=== PATIENT | female | born 1980 | race Two or more races ===

== ENCOUNTER 2021-01-31 05:38 | Inpatient (IN) | payer SELFPAY ==
[~2021-01-31] VITALS: Ht 152.4 cm; Wt 50.0 kg
[2021-01-31] VITALS (13 sets, daily range): BP systolic 32–63; BP diastolic 26–44
[2021-01-31] MEDS ORDERED: DEXTROSE 50% 25 GM / 50ML DISP.SYRIN. IV ONE (05:56)
--- NOTE | 2021-01-31 06:23 | RAD ---
XR CHEST 1V History: Reason: s/p ETT / Spl. Instructions: / History: Comparison: None. Findings: Endotracheal tube with tip 2.9 cm above the maria g. Enteric tube with tip below the diaphragm beyond the image. Left upper and midlung consolidations. No pleural effusion. No pneumothorax. Nipple shadow s projecting over the mid lungs. Impression: 1. Left mid and upper lung consolidations, may represent pneumonia or contusions depending on histor y. Electronically signed by: Adama Jauregui DO (01/31/2021 6:20 AM) [facility]
[2021-01-31] MEDS ORDERED: 0.9 % SOD CHL for STERILE FIELD 10 ML DISP.SYRIN. ONE (06:28)
[2021-01-31] MEDS ORDERED: EPINEPHrine VIAL 5 MG in IV NORMAL SALINE 250ML 250 ML IV ONE (06:30)
[2021-01-31 06:54] LABS: BASO % 0 % (0-3); EOS % 0 % (0-3); HEMATOCRIT 43.1 % (36.0-47.0); HEMOGLOBIN 12.5 g/dL (12.0-15.5); LYMPH # 1.5 x10^3/uL (1.0-4.8); LYMPH % 13 % (24-48); MEAN CORPUSCULAR HEMOGLOBIN 30 pg (25-35); MEAN CORPUSCULAR HGB CONC 29 g/dL (31-37); MEAN CORPUSCULAR VOLUME 103 fL (79-100); MONO % 9 % (0-9); NEUT # 8.5 x10^3/uL (1.8-7.7); NEUT % 78 % (31-73); PLATELET COUNT 254 x10^3/uL (140-400); RED BLOOD COUNT 4.19 x10^6/uL (3.50-5.40); RED CELL DISTRIBUTION WIDTH 15.4 % (11.5-14.5)
[2021-01-31 07:00] LABS: BILIRUBIN,URINE NEGATIVE (NEG); CLARITY,URINE CLEAR; COLOR,URINE YELLOW; NITRITE,URINE NEGATIVE (NEG); PH,URINE 5.5 (<5.0-8.0); PROTEIN,URINE 100 mg/dL (NEG-TRACE); UROBILINOGEN,URINE 0.2 mg/dL (0.2 mg/dL)
[2021-01-31] MEDS ORDERED: IV NORMAL SALINE 1000ML BAG 1,000 ML IV ONE (07:00)
[2021-01-31 07:05] LABS: BARBITURATES NEG (NEG); BENZODIAZEPINES NEG (NEG); CANNABINOIDS POS (NEG); COCAINE NEG (NEG); METHADONE NEG (NEG); OPIATES POS (NEG); PHENCYCLIDINE NEG (NEG)
[2021-01-31 07:08] LABS: AMPHETAMINE/METHAMPHETAMINE POS (NEG)
[2021-01-31 07:16] LABS: ALBUMIN 3.5 g/dL (3.4-5.0); ALBUMIN/GLOBULIN RATIO 0.9 (1.0-1.7); CALCIUM 8.7 mg/dL (8.5-10.1); CREATININE 2.8 mg/dL (0.6-1.0); GFR 18.9; TOTAL BILIRUBIN 0.3 mg/dL (0.2-1.0); TOTAL PROTEIN 7.3 g/dL (6.4-8.2)
[2021-01-31 07:20] LABS: POTASSIUM 6.7 mmol/L (3.5-5.1)
[2021-01-31 07:28] LABS: BACTERIA,URINE FEW /HPF (0-FEW); WBC,URINE OCC /HPF (0-4)
--- NOTE | 2021-01-31 07:53 | PHYS DOC ---
General Adult EDM: Chief Complaint: CPR/FULL ARREST HPI: HPI: Patient is a 40 year old female who was brought in by reportedly 4 different people, by private vehicle. The patient was noted to be completely unresponsive, and apneic and without a pulse when security and nursing staff helped to pull her out of a vehicle in the parking lot. She was immediately taken to resuscitation room, where ACLS protocol was initiated and followed. CPR was begun. The patient had IO and IV access established. Airway was secured. Please see nursing notes for details regarding medications, and please see my associated note for intubation details as well as central line placement details. The patient is completely unresponsive, and I am unable to obtain any information from her directly due to her current clinical condition. I am told by the nursing staff and security that one of the males who brought her in reported that they were at a [place] last night. I am in form that it did not seem as if this male knew much about this patient. I am told that he was not a family member or significant other. I am also informed that this male seemed intoxicated and was unable to give any other meaningful information. Police were notified and told to come to the emergency department for investigation. We initially did not have the patient's name. 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 Review of Systems: Review of Systems: Constitutional: Unobtainable Eyes: Unobtainable HENT: Unobtainable Respiratory: Respiratory rate Cardiovascular: Cardiac arrest, pulseless GI: Unobtainable : Unobtainable Musculoskeletal: Unobtainable Integument: Unobtainable Neurologic: She is unresponsive. Endocrine: Unobtainable Lymphatic: Unobtainable Psychiatric: Unobtainable Heart Score: C/O Chest Pain: N/A Risk Factors: Risk Factors: DM, Current or recent (<one month) smoker, HTN, HLP, family history of CAD, obesity. Risk Scores: Score 0 - 3: 2.5% MACE over next 6 weeks - Discharge Home Score 4 - 6: 20.3% MACE over next 6 weeks - Admit for Clinical Observation Score 7 - 10: 72.7% MACE over next 6 weeks - Early Invasive Strategies Current Medications: Current Medications Medications (Trade) Dose Ordered Sig/Logan Start Time Stop Time Status Last Admin Dose Admin Dextrose (Dextrose 50%-Water Syringe) 25 gm STK-MED ONCE 01/31/21 05:56 01/31/21 05:57 DC Dopamine HCl/ Dextrose 250 ml @ 15 mls/hr 1X ONCE 01/31/21 07:15 01/31/21 07:16 DC Epinephrine HCl 5 mg/Sodium Chloride 255 ml @ 24.48 mls/ hr 1X ONCE 01/31/21 06:30 01/31/21 16:54 Sodium Chloride 1,000 ml @ 1,000 mls/hr 1X ONCE 01/31/21 07:00 01/31/21 07:59 Sodium Chloride (NORMAL SALINE FLUSH for STERILE FIELD) 10 ml STK-MED ONCE 01/31/21 06:28 01/31/21 06:28 DC Allergies: Allergies: Allergies Coded Allergies Type Severity Reaction Last Updated Verified Unable to Assess 01/31/21 No Physical Exam: PE: Constitutional: Unresponsive, moribund HENT: No obvious significant scalp trauma noted. No obvious facial deformity noted. She has an abrasion of her left cheek area. Dried vomitus on the left side of her face. Eyes: Pupils are fixed and dilated. Cornea are very dry appearing. Neck: Trachea is midline Cardiovascular: On arrival, she is pulseless, no cardiac tones noted on auscultation. She is pale and cyanotic appearing. Lungs & Thorax: She is apneic, no spontaneous respirations. Abdomen: Abdomen is not obviously distended and appearing. Abdomen is soft. No obvious acute abdominal wall trauma. There is healed lower pelvic scar which appears consistent with a scar. Skin: Skin is unkempt. She has multiple superficial abrasions scattered on upper and lower extremities. She has a relatively large area of what appears to be ecchymotic erythema of her left hip and left lateral proximal thigh area. There appears to be a square type cony around this area of her left hip as well. She has some linear red mckeon noted on her left wrist and forearm, though they do not appear to be fully circumferential. She appears to have a superficial abrasion type lesion of her left shoulder area. No large open gaping wounds. No bleeding. Back: No obvious deformity. Extremities: She is poorly perfused, cyanotic. No obvious limb deformity is noted. Neurologic: She is unresponsive. No spontaneous movement. No localization to pain. No verbal response. No motor response. Pupils are fixed and dilated. Psychologic: Unresponsive Current Patient Data: Labs: Laboratory Tests Test 01/31/21 06:00 01/31/21 06:12 01/31/21 06:45 Sodium Level 146 mmol/L (136-145) H Potassium Level 6.7 mmol/L (3.5-5.1) *H Chloride Level 106 mmol/L (98-107) Carbon Dioxide Level 13 mmol/L (21-32) L Anion Gap 27 (6-14) H Blood Urea Nitrogen 18 mg/dL (7-20) Creatinine 2.8 mg/dL (0.6-1.0) H Estimated GFR (Cockcroft-Gault) 18.9 BUN/Creatinine Ratio 6 (6-20) Glucose Level 7 mg/dL (70-99) *L Calcium Level 8.7 mg/dL (8.5-10.1) Total Bilirubin 0.3 mg/dL (0.2-1.0) Aspartate Amino Transferase (AST) 708 U/L (15-37) H Alanine Aminotransferase (ALT) 609 U/L (14-59) H Alkaline Phosphatase 55 U/L (46-116) Troponin I Quantitative 1.483 ng/mL (0.000-0.055) Total Protein 7.3 g/dL (6.4-8.2) Albumin 3.5 g/dL (3.4-5.0) Albumin/Globulin Ratio 0.9 (1.0-1.7) L Ethyl Alcohol Level < 10 mg/dL (0-10) Glucose (Fingerstick) 430 mg/dL (50-99) *H Urine Collection Type U cath Urine Color Yellow Urine Clarity Clear Urine pH 5.5 (<5.0-8.0) Urine Specific [place] 1.025 (1.000-1.030) Urine Protein 100 mg/dL (NEG-TRACE) Urine Glucose (UA) Negative mg/dL (NEG) Urine Ketones (Stick) Negative mg/dL (NEG) Urine Blood Small (NEG) Urine Nitrite Negative (NEG) Urine Bilirubin Negative (NEG) Urine Urobilinogen Dipstick 0.2 mg/dL (0.2 mg/dL) Urine Leukocyte Esterase Negative (NEG) Urine RBC 1-2 /HPF (0-2) Urine WBC Occ /HPF (0-4) Urine Squamous Epithelial Cells Many /LPF Urine Bacteria Few /HPF (0-FEW) Urine Mucus Marked /LPF Urine Opiates Screen Pos (NEG) Urine Methadone Screen Neg (NEG) Urine Barbiturates Neg (NEG) Urine Phencyclidine Screen Neg (NEG) Urine Amphetamine/Methamphetamine Pos (NEG) Urine Benzodiazepines Screen Neg (NEG) Urine Cocaine Screen Neg (NEG) Urine Cannabinoids Screen Pos (NEG) Urine Ethyl Alcohol Neg (NEG) Laboratory Tests 01/31/21 06:00 Vital Signs: Vital Signs Date Time Temp Pulse Resp B/P (MAP) Pulse Ox O2 Delivery O2 Flow Rate FiO2 01/31/21 06:00 Ventilator EKG: EKG: EKG is interpreted at time of completion during resuscitation. Rhythm is irregular, does not appear to be sinus rhythm, does not appear to be organized rhythm [place] right Frequent ectopy which appears to be PVCs Radiology/Procedures: Radiology/Procedures: IMAGING REPORT Signed PATIENT: DAVID BERMUDEZ ACCOUNT: [id number] : 01/31/2021 LOCATION: ER AGE: 00M 00D SEX: F EXAM STATUS: PRE ER ORD. PHYSICIAN: DRAKE ERICKSON MD REASON: s/p ETT PROCEDURE: CHEST AP ONLY XR CHEST 1V History: Reason: s/p ETT / Spl. Instructions: / History: Comparison: None. Findings: Endotracheal tube with tip 2.9 cm above the maria g. Enteric tube with tip below the diaphragm beyond the image. Left upper and midlung consolidations. No pleural effusion. No pneumothorax. Nipple shadows projecting over the mid lungs. Impression: 1. Left mid and upper lung consolidations, may represent pneumonia or con tusions depending on history. Electronically signed by: Adama Jauregui DO (01/31/2021 6:20 AM) [facility] DICTATED and SIGNED BY: ADAMA JAUREGUI DO DATE: 01/31/21 [id number] Indication: Respiratory failure Consent: Unable to give consent due to emergent nature. Medications Used: see nursing note Procedure: The patient was placed in the appropriate position. Intubation was performed using direct manual laryngoscopy, 4 Bladimir blade. A 7.0 endotracheal tube was passed through the cords. I did use a bougie to assist in tube placement. Initial confirmation of placement included bilateral breath sounds, tube fogging, adequate chest rise, adequate pulse oximetry reading. A chest x-ray to verify correct placement of the tube showed appropriate tube position. There were no complications. Complications: none. Indication: Vascular access after status post cardiac arrest and hypotension Consent: Unobtainable secondary to patient's critical condition Procedure: The patient was positioned appropriately and the skin over the right femoral vein was prepped and draped in a sterile fashion. A large bore needle was used to identify the vein. A guide wire was then inserted into the vein through the needle. A triple lumen catheter was then inserted into the vessel over the guide wire using the Seldinger technique. All ports showed good, free flowing blood return and were flushed with saline solution. The catheter was then securely fastened to the skin with sutures and covered with a sterile dressing. Complications: none. [] Course & Med Decision Making: Course & Med Decision Making Pertinent Labs and Imaging studies reviewed. (See chart for details) ACLS protocol continued after the patient's arrival. She received multiple doses of IV epinephrine. PEA was noted on the monitor. She was intubated without incident. Please see associated intubation note for further details. The patient received IV calcium, sodium bicarbonate, as well as IV fluids. She was noted to be profoundly hypoglycemic, she was given boluses of IV dextrose. Her glucose did improve after this. The patient remains unresponsive, no meaningful movement, pupils continue to be fixed and dilated, no spontaneous respirations. After multiple doses of medications and CPR, ROSC was obtained. IV epinephrine drip was ordered. I placed a triple-lumen central line catheter to her right femoral vein. Please see associated note for details of this. This was uncomplicated and occurred without incident. IV epinephrine drip was continued and titrated. IV dopamine ordered for continued hypotension. IV fluid boluses are given. The please have been in contact with the people who brought her into the emergency department, ongoing investigation in that regard we will continue, per their protocol. Ultimately, I was able to speak with the patient's ex- and older sister. I was able to explain to them the grim situation and her critical condition. I fear that her condition is not survivable. She remains quite hypotensive despite fluids and pressor support. She continues to be completely unresponsive. I explained to her ex- and her sister the plan for admission to the ICU. They report that they will be in route to see her. Jessica Disclaimer: Jessica Disclaimer: This electronic medical record was generated, in whole or in part, using a voice recognition dictation system. Departure Departure Impression: Primary Impression: Cardiorespiratory arrest Additional Impressions: Acute renal failure Hyperkalemia Transaminitis Positive urine drug screen Elevated troponin level Multisystem organ failure Disposition: ADMITTED INPATIENT Admitting Physician: ANA Condition: CRITICAL Referrals: UNKNOWN PCP NAME (PCP) MAGDI RAMESH DO Jan 31, 2021 07:53
[2021-01-31] MEDS ORDERED: EPINEPHrine VIAL 10 MG in IV NORMAL SALINE 250ML IV PRN (08:15)
[2021-01-31 08:38] LABS: BASE EXCESS ABG -22 mmol/L (-3-3); HCO3 ABG 8 mmol/L (21-28); PCO2 ABG 31 mmHg (35-46); PO2 ABG 178 mmHg (85-108)
[2021-01-31 08:39] LABS: FIO2 ABG 100%; SAT O2 ABG 99 % (92-99)
[2021-01-31] MEDS ORDERED: SODIUM BICARBONATE VIAL 150 MEQ in IV DEXTROSE 5% 1,000 ML IV SCH (09:00)
[2021-01-31] MEDS ORDERED: SODIUM BICARB ADULT 8.4% 50 MEQ/50 ML DISP.SYRIN. IV ONE (09:00)
--- NOTE | 2021-01-31 09:02 | PDOC1 ---
History and Physical Date of Service: DOS: DATE: 01/31/21 TIME: 09:02 Chief Complaint: Problems: (1) Cardiorespiratory arrest (2) Acute renal failure (3) Multisystem organ failure (4) Elevated troponin level History of Present Illness: Reason for Visit: Found unresponsive HPI: Patient is intubated and sedated by the time I am able to evaluate her thus history from emergency room below. Patient is a 40 year old female who was brought in by reportedly 4 different people, by private vehicle. The patient was noted to be completely unresponsive, and apneic and without a pulse when security and nursing staff helped to pull her out of a vehicle in the parking lot. She was immediately taken to resuscitation room, where ACLS protocol was initiated and followed. CPR was begun. The patient had IO and IV access established. Airway was secured. Please see nursing notes for details regarding medications, and please see my associated note for intubation details as well as central line placement details. The patient is completely unresponsive, and I am unable to obtain any information from her directly due to her current clinical condition. I am told by the nursing staff and security that one of the males who brought her in reported that they were at a [place] last night. I am in form that it did not seem as if this male knew much about this patient. I am told that he was not a family member or significant other. I am also informed that this male seemed intoxicated and was unable to give any other meaningful information. Police were notified and told to come to the emergency department for investigation. We initially did not have the patient's name. 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 When I evaluated the patient in ICU she was completely unresponsive. Intubated without any sedation and no meaningful neurologic function. Pupils blown. Suspect notable anoxic injury Past Medical/Surgical History: PMH/PSH: Unknown and unable to review with patient Allergies: Allergies: Coded Allergies: Unable to Assess (Unverified , 01/31/21) Family History: Family History: Unknown and unable to review the patient Social History: Social History: Unknown and unable to review with patient Current Medications: Current Medications Current Medications Epinephrine HCl 5 mg/Sodium Chloride 255 ml @ 24.48 mls/ hr 1X ONCE IV Last administered on 01/31/21at 07:03; Start 01/31/21 at 06:30; Stop 01/31/21 at 16:54 Dextrose (Dextrose 50%-Water Syringe) 25 gm STK-MED ONCE IV ; Start 01/31/21 at 05:56; Stop 01/31/21 at 05:57; Status DC Sodium Chloride (NORMAL SALINE FLUSH for STERILE FIELD) 10 ml STK-MED ONCE .R OUTE ; Start 01/31/21 at 06:28; Stop 01/31/21 at 06:28; Status DC Sodium Chloride 1,000 ml @ 1,000 mls/hr 1X ONCE IV Last administered on 01/31/21at 07:03; Start 01/31/21 at 07:00; Stop 01/31/21 at 07:59; Status DC Dopamine HCl/ Dextrose 250 ml @ 15 mls/hr 1X ONCE IV Last administered on 01/31/21at 07:13; Start 01/31/21 at 07:15; Stop 01/31/21 at 07:16; Status DC Norepinephrine Bitartrate 8 mg/ Dextrose 258 ml @ 9.675 mls/ hr CONT PRN IV PER PROTOCOL; Start 01/31/21 at 08:00 Epinephrine HCl 10 mg/Sodium Chloride 250 ml @ 7.5 mls/hr CONT PRN IV SEE I/O RECORD; Start 01/31/21 at 08:15 Sodium Bicarbonate 150 meq/Dextrose 1,150 ml @ 75 mls/hr [id number] IV ; Start 01/31/21 at 09:00 Sodium Bicarbonate (Sodium Bicarb Adult 8.4% Syr) 100 meq 1X ONCE IV ; Start 01/31/21 at 09:00; Stop 01/31/21 at 09:01; Status DC ROS: Review of Systems Review of System Cannot review with patient as she is intubated and nonresponsive Physical Exam: Vital Signs: Vital Signs Date Time Temp Pulse Resp B/P (MAP) Pulse Ox O2 Delivery O2 Flow Rate FiO2 01/31/21 08:19 100 Ventilator 01/31/21 06:17 25 34/7 (16) 99.0 01/31/21 06:14 64 01/31/21 05:50 100.0 100.0 Physcial Exam: GEN: Patient unresponsive no meaningful neurologic function HEENT: Normal cephalic, atraumatic, external auditory canals are patent EYES: Nonreactive pupils MUSCULOSKELETAL: Well developed , well nourished LUNGS: Clear to auscultation in all lung lemos without rhonchi or wheezing HEART: RRR, S1, S2 present. Peripheral pulses intact, no obvious murmurs noted ABDOMEN: Soft, nontender. Positive bowel sounds, no organomegaly, normal bowel sounds EXTREMITIES: Without clubbing, cyanosis, or edema. Pedal pulses intact. NEUROLOGIC: No meaningful neurologic function PSYCHIATRIC: Cannot assess SKIN: No ulcerations or rashes, good skin turgor, no jaundice VASCULAR: Good capillary refill, neurovascular bundle appears to be intact Labs: Labs: Laboratory Tests Test 01/31/21 06:00 01/31/21 06:12 01/31/21 06:40 01/31/21 06:45 White Blood Count 11.0 x10^3/uL (4.0-11.0) Red Blood Count 4.19 x10^6/uL (3.50-5.40) Hemoglobin 12.5 g/dL (12.0-15.5) Hematocrit 43.1 % (36.0-47.0) Mean Corpuscular Volume 103 fL (79-100) Mean Corpuscular Hemoglobin 30 pg (25-35) Mean Corpuscular Hemoglobin Concent 29 g/dL (31-37) Red Cell Distribution Width 15.4 % (11.5-14.5) Platelet Count 254 x10^3/uL (140-400) Neutrophils (%) (Auto) 78 % (31-73) Lymphocytes (%) (Auto) 13 % (24-48) Monocytes (%) (Auto) 9 % (0-9) Eosinophils (%) (Auto) 0 % (0-3) Basophils (%) (Auto) 0 % (0-3) Neutrophils # (Auto) 8.5 x10^3/uL (1.8-7.7) Lymphocytes # (Auto) 1.5 x10^3/uL (1.0-4.8) Monocytes # (Auto) 1.0 x10^3/uL (0.0-1.1) Eosinophils # (Auto) 0.0 x10^3/uL (0.0-0.7) Basophils # (Auto) 0.0 x10^3/uL (0.0-0.2) Sodium Level 146 mmol/L (136-145) Potassium Level 6.7 mmol/L (3.5-5.1) Chloride Level 106 mmol/L (98-107) Carbon Dioxide Level 13 mmol/L (21-32) Anion Gap 27 (6-14) Blood Urea Nitrogen 18 mg/dL (7-20) Creatinine 2.8 mg/dL (0.6-1.0) Estimated GFR (Cockcroft-Gault) 18.9 BUN/Creatinine Ratio 6 (6-20) Glucose Level 7 mg/dL (70-99) Lactic Acid Level 16.2 mmol/L (0.4-2.0) Calcium Level 8.7 mg/dL (8.5-10.1) Total Bilirubin 0.3 mg/dL (0.2-1.0) Aspartate Amino Transf (AST/SGOT) 708 U/L (15-37) Alanine Aminotransferase (ALT/SGPT) 609 U/L (14-59) Alkaline Phosphatase 55 U/L (46-116) Troponin I Quantitative 1.483 ng/mL (0.000-0.055) Total Protein 7.3 g/dL (6.4-8.2) Albumin 3.5 g/dL (3.4-5.0) Albumin/Globulin Ratio 0.9 (1.0-1.7) Ethyl Alcohol Level < 10 mg/dL (0-10) Glucose (Fingerstick) 430 mg/dL (50-99) SARS-CoV-2 Antigen (Rapid) Negative (NEGATIVE) Urine Collection Type U cath Urine Color Yellow Urine Clarity Clear Urine pH 5.5 (<5.0-8.0) Urine Specific [place] 1.025 (1.000-1.030) Urine Protein 100 mg/dL (NEG-TRACE) Urine Glucose (UA) Negative mg/dL (NEG) Urine Ketones (Stick) Negative mg/dL (NEG) Urine Blood Small (NEG) Urine Nitrite Negative (NEG) Urine Bilirubin Negative (NEG) Urine Urobilinogen Dipstick 0.2 mg/dL (0.2 mg/dL) Urine Leukocyte Esterase Negative (NEG) Urine RBC 1-2 /HPF (0-2) Urine WBC Occ /HPF (0-4) Urine Squamous Epithelial Cells Many /LPF Urine Bacteria Few /HPF (0-FEW) Urine Mucus Marked /LPF Urine Opiates Screen Pos (NEG) Urine Methadone Screen Neg (NEG) Urine Barbiturates Neg (NEG) Urine Phencyclidine Screen Neg (NEG) Urine Amphetamine/Methamphetamine Pos (NEG) Urine Benzodiazepines Screen Neg (NEG) Urine Cocaine Screen Neg (NEG) Urine Cannabinoids Screen Pos (NEG) Urine Ethyl Alcohol Neg (NEG) Test 01/31/21 08:32 01/31/21 08:59 O2 Saturation 99 % (92-99) Arterial Blood pH 7.03 (7.35-7.45) Arterial Blood pCO2 at Patient Temp 31 mmHg (35-46) Arterial Blood pO2 at Patient Temp 178 mmHg (85-108) Arterial Blood HCO3 8 mmol/L (21-28) Arterial Blood Base Excess -22 mmol/L (-3-3) FiO2 100% Glucose (Fingerstick) 151 mg/dL (70-99) Laboratory Tests Test 01/31/21 06:00 01/31/21 06:12 01/31/21 06:40 01/31/21 06:45 White Blood Count 11.0 x10^3/uL (4.0-11.0) Red Blood Count 4.19 x10^6/uL (3.50-5.40) Hemoglobin 12.5 g/dL (12.0-15.5) Hematocrit 43.1 % (36.0-47.0) Mean Corpuscular Volume 103 fL (79-100) Mean Corpuscular Hemoglobin 30 pg (25-35) Mean Corpuscular Hemoglobin Concent 29 g/dL (31-37) Red Cell Distribution Width 15.4 % (11.5-14.5) Platelet Count 254 x10^3/uL (140-400) Neutrophils (%) (Auto) 78 % (31-73) Lymphocytes (%) (Auto) 13 % (24-48) Monocytes (%) (Auto) 9 % (0-9) Eosinophils (%) (Auto) 0 % (0-3) Basophils (%) (Auto) 0 % (0-3) Neutrophils # (Auto) 8.5 x10^3/uL (1.8-7.7) Lymphocytes # (Auto) 1.5 x10^3/uL (1.0-4.8) Monocytes # (Auto) 1.0 x10^3/uL (0.0-1.1) Eosinophils # (Auto) 0.0 x10^3/uL (0.0-0.7) Basophils # (Auto) 0.0 x10^3/uL (0.0-0.2) Sodium Level 146 mmol/L (136-145) Potassium Level 6.7 mmol/L (3.5-5.1) Chloride Level 106 mmol/L (98-107) Carbon Dioxide Level 13 mmol/L (21-32) Anion Gap 27 (6-14) Blood Urea Nitrogen 18 mg/dL (7-20) Creatinine 2.8 mg/dL (0.6-1.0) Estimated GFR (Cockcroft-Gault) 18.9 BUN/Creatinine Ratio 6 (6-20) Glucose Level 7 mg/dL (70-99) Lactic Acid Level 16.2 mmol/L (0.4-2.0) Calcium Level 8.7 mg/dL (8.5-10.1) Total Bilirubin 0.3 mg/dL (0.2-1.0) Aspartate Amino Transf (AST/SGOT) 708 U/L (15-37) Alanine Aminotransferase (ALT/SGPT) 609 U/L (14-59) Alkaline Phosphatase 55 U/L (46-116) Troponin I Quantitative 1.483 ng/mL (0.000-0.055) Total Protein 7.3 g/dL (6.4-8.2) Albumin 3.5 g/dL (3.4-5.0) Albumin/Globulin Ratio 0.9 (1.0-1.7) Ethyl Alcohol Level < 10 mg/dL (0-10) Glucose (Fingerstick) 430 mg/dL (50-99) SARS-CoV-2 Antigen (Rapid) Negative (NEGATIVE) Urine Collection Type U cath Urine Color Yellow Urine Clarity Clear Urine pH 5.5 (<5.0-8.0) Urine Specific [place] 1.025 (1.000-1.030) Urine Protein 100 mg/dL (NEG-TRACE) Urine Glucose (UA) Negative mg/dL (NEG) Urine Ketones (Stick) Negative mg/dL (NEG) Urine Blood Small (NEG) Urine Nitrite Negative (NEG) Urine Bilirubin Negative (NEG) Urine Urobilinogen Dipstick 0.2 mg/dL (0.2 mg/dL) Urine Leukocyte Esterase Negative (NEG) Urine RBC 1-2 /HPF (0-2) Urine WBC Occ /HPF (0-4) Urine Squamous Epithelial Cells Many /LPF Urine Bacteria Few /HPF (0-FEW) Urine Mucus Marked /LPF Urine Opiates Screen Pos (NEG) Urine Methadone Screen Neg (NEG) Urine Barbiturates Neg (NEG) Urine Phencyclidine Screen Neg (NEG) Urine Amphetamine/Methamphetamine Pos (NEG) Urine Benzodiazepines Screen Neg (NEG) Urine Cocaine Screen Neg (NEG) Urine Cannabinoids Screen Pos (NEG) Urine Ethyl Alcohol Neg (NEG) Test 01/31/21 08:32 01/31/21 08:59 O2 Saturation 99 % (92-99) Arterial Blood pH 7.03 (7.35-7.45) Arterial Blood pCO2 at Patient Temp 31 mmHg (35-46) Arterial Blood pO2 at Patient Temp 178 mmHg (85-108) Arterial Blood HCO3 8 mmol/L (21-28) Arterial Blood Base Excess -22 mmol/L (-3-3) FiO2 100% Glucose (Fingerstick) 151 mg/dL (70-99) Assessment/Plan Assessment/Plan Cardiorespiratory arrest, multisystem organ failure, troponinemia, acute renal failure high anion gap metabolic acidosis -Patient brought in unresponsive to the ER. Underwent multiple rounds of CPR in emergency room -Initial labs showing acidosis, multisystem organ failure. -Consults to pulmonary renal cardiology placed -Currently requiring vasopressor support -Neurologically no meaningful function, no pupillary reactivity -Remains a full code, will discuss with family at bedside when they arrive. Justifications for Admission Other Justification JOHN ESTRADA MD Jan 31, 2021 09:02
[2021-01-31] MEDS: NOREPINEPHRINE VIAL 8 MG in IV DEXTROSE 5% 250 ML IV PRN ×2 (09:08→11:57)
[2021-01-31] MEDS ORDERED: 0.9 % SODIUM CHLORIDE 10 ML DISP.SYRIN. IV PRN (09:15)
[2021-01-31] MEDS ORDERED: ONDANSETRON PF 4 MG/2 ML VIAL. IVP PRN (09:15)
[2021-01-31] MEDS ORDERED: NOREPINEPHRINE VIAL 32 MG in IV D5W 250ML IV PRN (11:15)
[2021-01-31] MEDS ORDERED: VASOPRESSIN - VASOSTRICT 20 UNIT in IV DEXTROSE 5% 100ML 100 ML IV PRN (11:45)
--- NOTE | 2021-01-31 14:10 | NUR ---
0800- pt arrived from ED. Post code on vent, with no sedation maxed on epi and dopamine. BP 44/31 on arrival, patient unresponsive, pupils measured at 7mm equal and non reactive. No gag, cough or pain response. Placed consults to Pulmonary, Neuro, ID and Nephrology. Levo and Vasopressin started. Levo titrated rapidly up to 1mcg/kg/hr without any response to Bp. Family arrived and at bedside at approx 0930. Informed them of the patient's rapidly declining condition. Patient's son Dony agreed to make DNR. MTN notified and on the unit at approx 1200. 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 Not a candidate bc of persistent low BP's/map since 0500. Ozzy Napoles request to withdraw care. Order placed from Dr Mitchell to withdraw care. Patient extubated at 1257, time of 1300. MTN notified, patient not a candidate for tissue or eye. Patient belongings released to ozzy Napoles. Body will be released to the Hematology Nurse pending an investigation per [employer].
--- NOTE | 2021-02-01 01:25 | EKG ---
[facility] [address] [place] [address] Test Date: 2021-01-31 Test Time: 05:54:51 Pat Name: IGNACIO GONZÁLES Department: Room: [facility] Gender: F Oxygen Tank Filler: : 1980 Requested By: MAGDI RAMESH Order Number: [id number] Reading MD: Measurements Intervals Mulga Rate: 71 P: SD: QRS: 102 QRSD: 100 T: 91 QT: 392 QTc: 431 Interpretive Statements IRREGULAR RHYTHM, NO P-WAVE FOUND VENTRICULAR PREMATURE COMPLEX(ES) RIGHTWARD AXIS QRS(T) CONTOUR ABNORMALITY CONSIDER HIGH LATERAL INFARCT ST & T ABNORMALITY, CONSIDER LATERAL ISCHEMIA OR LEFT VENTRICULAR STRAIN T ABNORMALITY IN ANTERIOR LEADS ABNORMAL ECG RI6.01 No previous ECG available for comparison
[2021-02-01] MEDS ORDERED: ELECTROLYTE (ICU) PROTOCOL. MC SCH (09:00)
== END 2021-01-31 13:00 | DRG 683 ==
LOC: ER 05:38 → EDBD 05:38 → 1 WEST ICU 06:47
PROVIDERS: ADMIT Internal Medicine; ATTEND Internal Medicine
PROC: 5A1935Z Respiratory Ventilation, Less than 24 Consecutive Hours (ICD-10-PCS; principal; 2021-01-31)
PROC: 0BH17EZ Insertion of Endotracheal Airway into Trachea, Via Natural or Artificial Opening (ICD-10-PCS; 2021-01-31)
PROC: 5A12012 Performance of Cardiac Output, Single, Manual (ICD-10-PCS; 2021-01-31)
DX: N17.9 Acute kidney failure, unspecified (principal); E87.2 Acidosis; E87.5 Hyperkalemia; I46.9 Cardiac arrest, cause unspecified; Z66 Do not resuscitate; Z20.822 Contact with and (suspected) exposure to COVID-19; R74.01 Elevation of levels of liver transaminase levels
CPT/HCPCS: 31500; 31720; 36415; 36556; 36600; 51702; 71045; 80053; 80307; 81001; 82805; 82962; 83605; 84484; 85025; 87086; 87426; 92950; 93005; 94002; 94760; 96365; 96374; G0480; J0171; J1265; J3490; J7030; J7050; J7060; U0003; U0005; 99285-25; G0378